=== PATIENT | male | born 1995 | race Caucasian/White ===

== ENCOUNTER → 2017-03-27 | Outpatient (CLI) | payer OTHER ==
--- NOTE | 2017-03-27 08:28 | DIAGNOSTIC IMAGING REPORT ---
ABDOMINAL ULTRASOUND, RIGHT UPPER QUADRANT HISTORY: Pain RUQ ABD PAIN. COMPARISON: None. FINDINGS: Pancreas: Poorly seen due to bowel content Liver: Unremarkable. Gallbladder: No gallbladder wall thickening. No gallstones. CBD: 3 mm Right kidney: No hydronephrosis. IMPRESSION: No significant abnormality identified within the within the right upper quadrant. Electronically signed by: Willie Taylor M.D. 03/27/2017 8:27 AM Dictated Date/Time: 03/27/2017 8:18 AM
== END | disposition home or self-care (01) ==
LOC: C.ULTR 07:28
PROVIDERS: ATTEND Physician Assistant
DX: R10.11 Right upper quadrant pain (principal)